=== PATIENT | female | born 1985 | race Caucasian/White ===

== ENCOUNTER 2024-06-01 09:34 | Emergency (ER) | payer OTHER ==
[~2024-06-01] VITALS: Ht 165.1 cm; Wt 81.8 kg
[2024-06-01] MEDS ORDERED: AMOX-580 PO (11:50)
[2024-06-01] MEDS: HYDROcodone/acetaminophen 5mg/325mg tablet PO ONE (12:03)
[2024-06-01] MEDS: ketorolac trometh 30MG/ML vial 30 MG/ML VIAL IM ONE (12:04)
[2024-06-01 12:12] VITALS: BP 132/72; PULSE 77; RESP 16; TEMP 98.6; O2SAT 99
== END 2024-06-01 12:11 | disposition home or self-care (01) ==
LOC: ER 09:35
DX: H66.92 Otitis media, unspecified, left ear (principal)
CPT/HCPCS: 96372; 99283; J1885

== ENCOUNTER 2024-09-02 09:11 | Emergency (ER) | payer OTHER ==
[~2024-09-02] VITALS: Ht 165.1 cm; Wt 91.2 kg
--- NOTE | 2024-09-02 09:21 | Physician Documentation ---
History of Present Illness ~ Chief Complaint: Flu Symptoms Stated Complaint: FLU SYMPTOMS Time Seen by MD: 09:16 HPI This is a 39-year-old female with no significant past medical history who presents for evaluation of flu-like symptoms including generalized body aches, malaise, bilateral upper and lower extremity hands/feet tingling, that has been present for about five days. No known infectious exposure. No obvious trigger provocation. The particular palliating or aggravating factors. Did not test herself for COVID at home. Does report some dry cough. Denies any chest pain. Denies any difficulty breathing. No nausea, vomiting or diarrhea, abdominal pain. She smokes cigarettes, denies use of drugs or alcohol. Medication Reconciliation Allergies: Coded Allergies: prednisone (Verified Allergy, Unknown, Rash, 06/01/24) Review of Systems ROS 10 point review of systems was performed and unless noted above in HPI is negative for acute process/complaint. Physical Exam Vital Signs: Temperature: 97.7, Source: Oral, Heart Rate: 63, Respiratory Rate: 15, BP: 128/84, Pulse Oximetry: 99, Weight: 91.250 Physical Exam GENERAL: Awake, alert, oriented, GCS 15, no apparent distress, non-toxic appearing, answers questions, follows commands appropriately. Examined in triage . Profound smell of marijuana emanates from the patient. HEENT: Atraumatic, normocephalic, pupils equal, extraocular muscles intact, sclerae anicteric, mucus membranes moist, oropharynx is clear, no stridor. NECK: supple, full active range of motion, trachea midline, no thyromegaly, no lymphadenopathy, no JVD. CARDIOVASCULAR: regular rate/rhythm, no murmurs/gallops/rubs, Pulses are 2+ in all extremities and symmetric. Capillary refill less than 2 seconds. PULMONARY: Nonlabored, good air movement ,no respiratory distress, speaking in full sentences, coarse breath sounds bilaterally, no wheezing, no ronchi, no rales, no accessory muscle use. GASTROINTESTINAL: Soft, non-tender, non-distended, normal active bowel sounds, no organomegaly, no pulsatile masses, no CVA tenderness. NEUROLOGIC: Lucid with normal mental status. Normal facial symmetry. Moves all extremities symmetrically and with purpose. No truncal ataxia. Speech is fluid without evidence of dysarthria or aphasia, no focal deficits appreciated. MUSCULOSKELETAL: There is full range of motion of all extremities. There is no joint pain or joint swelling or joint erythema. There is no muscle pain or tenderness or swelling. EXTREMITIES: warm, well-perfused, no cyanosis, no clubbing, no edema, no acute deformities. Skin: warm, dry, no rashes or lesions, no jaundice, no petechiae orpurpura. No ecchymosis. PSYCHIATRIC: Normal affect, normal insight, normal concentration. Focused exam: [] Progress Results/Orders Results/Orders Orders - KUMAR LONDONO DO Covid19 Binax Poc Result Entry (09/02/24 09:16) Chest,Single View (09/02/24 09:16) Completed Orders - KUMAR LONDONO DO Chest,Single View (09/02/24 09:16) Vital Signs 09/02/24 09:13 Temp 97.7 Pulse 63 Resp 15 B/P (MAP) 128/84 Pulse Ox 99 Laboratory Tests Test 09/02/24 09:18 SARS-CoV-2 Antigen (Rapid) Positive *A Medical Decision Making Findings Facility Status: ED Holds, [facility] process The plan was discussed with the patient, who demonstrates clear understanding of the plan and is in agreement with the plan unless otherwise noted in the chart. All questions have been answered, all concerns were addressed unless otherwise documented. I was available throughout their ED stay for frequent reassessment and questions. Differential Diagnoses (considered and possible or likely): [Worrying upper respiratory infection with the top of the viruses, COVID, influenza, RSV, less likely bacterial pneumonia] ??Differential Diagnoses (considered and unlikely, not requiring evaluation currently): [Clinically not consistent with a Guillain-Keatchie, rhabdomyolysis, myositis] MDM Data Please see HPI for the following: Independent Historians and external Records Review. Historian: [Patient] Independent Historians: ?[Record review] Medication Management: [Reviewed medication list] Social History and determinants: [Reviewed] Please see the body of the note for the following: Any independent interpretations of ECG, imaging studies. All vitals signs/haemodynamics, ordered tests were independently reviewed and interpreted by myself. Nursing triage complaint and vitals reviewed, additional nursing notes were reviewed as available and I agree unless otherwise noted or documented in contradiction in the chart Vital Signs: Independently reviewed Labs: Independently interpreted Imaging: Independently interpreted Old Medical Records: Independently reviewed, see HPI for relevant summary and information Pulse Oximetry: [98%] interpreted as [normal on room air] by me [Machine Setup Operator: [Regular Rate, Regular rhythm, no ectopy, NSR] reviewed and interpreted by me] Additionally notably showing: [She is hemodynamically stable, no hypoxia. On my independent interpretation of chest x-ray, normal cardiac silhouette, no focal infiltrates, grossly normal bony structures. She is followed for COVID.] Tests considered but not ordered include: [Blood work does not appear to be necessary in the setting as the patient is well-appearing hemodynamically stable.] Social Determinants of Health Impact: Patient was evaluated in [facility] [place] to healthcare due to below par ratio of patient to medical providers. [] Comorbid Conditions Impacting Present Evaluation and Care/Treatment: [None] Management Discussions with other Healthcare Providers: [Non] Treatment and Disposition Medication Management (Given or considered): []. See EMR for details Consideration for Hospitalization/Escalation/Deescalation of Care: Admission for observation has been considered, [however the patient is able to tolerate p.o., their symptoms are controlled, they are able to rely on oral medications, and their chief complaint/diagnosis can be managed on outpatient basis.] ?ED Course:?[No clinical deterioration] ?Shared decision making:?[Patient is hemodynamically stable for discharge home with follow with their primary care provider. [ ] Specific and cautious return precautions provided and discussed with full understanding. Any incidental findings were also discussed and follow up recommendations given. [] All questions answered. Patient/family were able to verbalize back return pr ecautions. Patient/family agree to plan. Copies of imaging and laboratory studies were provided.] Code status:?FULL Please see the full Electronic Medical Record for full details of nursing documentation, medications list, other records of complete past medical history and conditions, vital signs, laboratory studies, and any radiologic study interpretations by radiologists. Portions of this note were completed using Snapguide dictation software and as a result there may exist minor errors in spelling. I have reviewed elements of past family and social history and agree as included in note. Departure Impression: Primary Impression: COVID-19 Additional Impressions: Upper respiratory infection Flu-like symptoms Malaise Numbness and tingling in both hands Numbness and tingling of both feet Condition: Improved Discharge Instructions: Upper Respiratory Infection, Adult Additional Instructions: You have COVID-19 disease. Please quarantine yourself as per CDC guidelines. Please continue to monitor your symptoms. You will need to return for a re- evaluation if the numbness and tingling ascend up the arms/legs and/or you develop weakness, this may be a symptom of Guillain-Keatchie syndrome. This will require further evaluation and management. Referrals: NO PRIMARY CARE PROVIDER (PCP) Education Educated: Patient Educated regarding: diagnosis, treatment, prognosis, need for follow up Signature Scribe Signature: No scribe Attestation: This note accurately reflects clinical decisions, work performed by myself, Kumar Londono, KUMAR BOOKER DO Sep 02, 2024 09:21
--- NOTE | 2024-09-02 09:42 | RADIOLOGY REPORT ---
AP portable chest CLINICAL INDICATION: FLU SYMP FINDINGS: Heart size is normal. No infiltrates or effusions. No bony thoracic abnormalities. IMPRESSION: 1. Normal chest x-ray.
[2024-09-02 10:04] VITALS: BP 134/98; PULSE 68; RESP 20; TEMP 98.5; O2SAT 97
== END 2024-09-02 10:05 | disposition home or self-care (01) ==
LOC: ER 09:11
DX: U07.1 COVID-19 (principal); J06.9 Acute upper respiratory infection, unspecified; R20.0 Anesthesia of skin; R20.2 Paresthesia of skin; F17.210 Nicotine dependence, cigarettes, uncomplicated; Z88.8 Allergy status to other drugs, medicaments and biological substances
CPT/HCPCS: 36415; 71045; 87811; 99284